=== PATIENT | male | born 1990 | race African-American/Black ===

== ENCOUNTER 2019-01-30 09:35 | Emergency (ER) | payer BC, SELFPAY ==
[2019-01-30 10:12] LABS: Bacteria/HPF None Seen HPF (None Seen); Bilirubin Negative (Negative); Blood, Urine 1+ (Negative); Clarity Clear (Clear); Glucose, Urine (Dipstick) Normal (Negative); Leukocyte 500 Leu/uL (Negative); Nitrite Negative (Negative); Protein, Urine (Dipstick) 10 mg/dL (Neg-Trace); Squamous Epithelial None Seen HPF (0-3); Urobilinogen Normal mg/dL (Less than 2); WBC/HPF Greater than 50 HPF (0-3)
[2019-01-30] MEDS ORDERED: Lidocaine 2% PF 5 ML VIAL ONE (10:47)
[2019-01-30] MEDS ORDERED: cefTRIAXone\\ROCEPHIN 250 MG VIAL ONE (10:47)
[2019-01-30] MEDS ORDERED: Azithromycin 250 MG TAB ONE (10:47)
[2019-01-30] MEDS ORDERED: Lidocaine 1% PF 5 ML VIAL ONE (10:48)
== END 2019-01-30 11:15 | disposition home or self-care (01) ==
LOC: ERS 09:35
DX: A64 Unspecified sexually transmitted disease (principal)
CPT/HCPCS: 81003; 81015; 87077; 87086; 87186; 96372; 99283; J0696; J2001